=== PATIENT | female | born 1990 | race American Indian/Alaskan Native ===

== ENCOUNTER 2016-10-23 12:30 | Emergency (ER) | payer OTHER ==
[2016-10-23 12:36] VITALS: RESP 18; TEMP 98; O2SAT 98; BMI 46.0
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
--- NOTE | 2016-10-23 15:03 | RAD ---
PROCEDURE: Right Hip Radiographs. HISTORY: hip pain COMPARISON: None. FINDINGS: BONES: Normal. No fracture. JOINTS: Normal. SOFT TISSUES: Normal. OTHER FINDINGS: None. IMPRESSION: Normal radiographs of right hip.
[2016-10-23 15:05] VITALS: BP 127/66; PULSE 87
--- NOTE | 2016-10-23 15:08 | RAD ---
PROCEDURE: Right Knee Radiographs. HISTORY: knee pain COMPARISON: None. FINDINGS: BONES: Normal. No fracture. JOINTS: Normal. No osteoarthritis. JOINT EFFUSION: None. OTHER FINDINGS: None. IMPRESSION: Normal radiographs of the right knee.
== END 2016-10-23 15:06 | disposition home or self-care (01) ==
LOC: ED 12:30
DX: M25.561 Pain in right knee (principal); M25.551 Pain in right hip